=== PATIENT | female | born 2000 | race African-American/Black ===

== ENCOUNTER 2025-01-16 14:47 | Emergency (ER) | payer MEDICAID ==
[~2025-01-16] VITALS: Ht 165.1 cm; Wt 83.9 kg
[2025-01-16 15:06] VITALS: BP 110/69; PULSE 69; RESP 16; TEMP 98.5; O2SAT 98
[2025-01-16 17:05] LABS: INFLUENZA VIRUS A ANTIGEN NEGATIVE (NEG); INFLUENZA VIRUS B ANTIGEN NEGATIVE (NEG)
[2025-01-16 17:38] VITALS: BP 129/81; PULSE 72; RESP 16; TEMP 98.5; O2SAT 98
== END 2025-01-16 17:40 | disposition home or self-care (01) ==
LOC: ER 14:47
DX: J06.9 Acute upper respiratory infection, unspecified (principal); Z20.822 Contact with and (suspected) exposure to COVID-19
CPT/HCPCS: 71046; 87426; 87804; 99284